=== PATIENT | female | born 2000 | race Asian ===

== ENCOUNTER 2023-06-24 15:22 | Inpatient (IN) ==
[2023-06-24] MEDS ORDERED: NS 0.9% 1000 ml BAG 1,000 ML IV ONE (15:55)
[2023-06-24] MEDS ORDERED: NS 0.9% 1000 ml BAG 0 ML IV SCH (16:30)
[2023-06-24 16:54] LABS: ABS Lymphocytes 0.5 10^3/uL (1.0-4.8); ABS Monocytes 0.1 10^3/uL (0.0-0.9); ABS Neutrophils 3.1 10^3/uL (1.5-7.6); Eosinophil % 0.1 %; Hematocrit 24.7 % (35-45); Hemoglobin 8.2 g/dL (11.5-14.3); Lymphocyte % 12.8 %; Mean Corpuscular Hemoglobin 27.9 pg (27-33); Mean Corpuscular Volume 84.5 fL (80-97); Mean Platelet Volume 8.2 fL (7.5-11.2); Platelet Count 110 10^3/uL (150-450); Red Blood Count 2.93 10^6/uL (3.63-4.92); Red Cell Distribution Width 14.5 % (12-17); White Blood Count 3.7 10^3/uL (3.8-11.8)
[2023-06-24 17:25] LABS: HCG Pregnancy < 0.60 mIU/mL
[2023-06-24 17:30] LABS: ALT 19 U/L (7-52); Albumin 2.2 g/dL (3.2-5.2); Albumin/Globulin Ratio 0.4 (1-3); Alkaline Phosphatase 41 U/L (35-149); Blood Urea Nitrogen 13 mg/dL (6-24); CO2 Carbon Dioxide 24 mmol/L (22-32); CRP High Sensitivity 13.52 mg/L (<2.00); Calcium 7.9 mg/dL (8.6-10.3); Chloride 109 mmol/L (101-111); Creatine Kinase 76 U/L (10-223); Glucose 72 mg/dL (70-100); Sodium 141 mmol/L (135-145); Total Bilirubin 0.3 mg/dL (0.2-1.0); Total Protein 7.2 g/dL (6.4-8.9)
[2023-06-24 17:58] LABS: Creatinine, Serum 0.39 mg/dL (0.51-0.95); eGFR CKD-EPI 143.4 (>60)
[2023-06-24 18:01] LABS: Alcohol, S < 13 mg/dL (<13); Anion Gap 8 mmol/L (2-16)
[2023-06-24] MEDS ORDERED: Iohexol 350 (CONTRAST) 500 ML MDV IV ONE (18:02)
[2023-06-24 18:16] LABS: TSH Ultra Thyroid Stim Horm 3.65 mcIU/mL (0.34-5.60)
[2023-06-24 19:20] LABS: Erythrocyte Sed Rate > 120 mm/Hr (0-19)
[2023-06-24 23:40] LABS: Immature Retic Fraction 0.36
[2023-06-25 01:05] LABS: Potassium Redraw 3.4 mmol/L (3.5-5.0)
[2023-06-25] MEDS: Ketorolac 10 mg TAB (NF) PO PRN (02:45)
[2023-06-25 03:50] LABS: Corrected Retic Count 0.7 % (0.5-2.2); Hematocrit for Retic CNT 24.7 % (35-45)
[2023-06-25] MEDS: cefTRIAXone 1 gm/50 mL D5W 1 GM/50 ML BAG IV SCH (04:18)
[2023-06-25] MEDS: Azithromycin 500 mg/250 ml NS 500 MG/250 ML BAG IVPB SCH (05:10)
[2023-06-25] MEDS: Venlafaxine XR 75 mg PO SCH (07:30)
[2023-06-25] MEDS ORDERED: Potassium Chlor 20 meq TAB.ER PO ONE (07:45)
[2023-06-25] MEDS ORDERED: Influenza vaccine *QUAD* *2023-24* 0.5 ML SYRINGE IM ONE (09:00)
[2023-06-25 10:54] LABS: High Sensitivity Troponin 1 Hr 9 pg/mL (<15)
[2023-06-25] MEDS: Ondansetron 4 mg VIAL 2 MG/ML 2 ml VIAL IV PRN (11:04)
[2023-06-25] MEDS: methylPREDNISolone SOD SUCC 1,000 MG in NS 0.9% 1000 ml BAG 1,000 ML IVPB SCH (11:37)
[2023-06-25] MEDS: Calcium/Vitamin D TAB 250/125 TAB PO SCH (22:02)
[2023-06-26] MEDS: cefTRIAXone 1 gm/50 mL D5W 1 GM/50 ML BAG IV SCH (04:00)
[2023-06-26] MEDS: Azithromycin 500 mg/250 ml NS 500 MG/250 ML BAG IVPB SCH (04:37)
[2023-06-26 08:25] LABS: Hematocrit 25.8 % (35-45); Hemoglobin 8.7 g/dL (11.5-14.3); Mean Corpuscular Hemoglobin 27.8 pg (27-33); Mean Corpuscular Hgb Conc 33.7 g/dL (31-36); Mean Corpuscular Volume 82.4 fL (80-97); Red Blood Count 3.14 10^6/uL (3.63-4.92); Red Cell Distribution Width 14.3 % (12-17); White Blood Count 4.9 10^3/uL (3.8-11.8)
[2023-06-26 08:50] LABS: Albumin 1.8 g/dL (3.2-5.2); Albumin/Globulin Ratio 0.4 (1-3); C Reactive Protein 12.13 mg/L (<8.01); Calcium 7.5 mg/dL (8.6-10.3); Creatinine, Serum 0.41 mg/dL (0.51-0.95); Globulin 4.1 g/dL (2-4); Potassium 3.8 mmol/L (3.5-5.0); Total Bilirubin 0.2 mg/dL (0.2-1.0); Total Protein 5.9 g/dL (6.4-8.9); eGFR CKD-EPI 141.7 (>60)
[2023-06-26 09:12] LABS: ABS Lymphocytes 0.7 10^3/uL (1.0-4.8); ABS Monocytes 0.3 10^3/uL (0.0-0.9); ABS Neutrophils 3.9 10^3/uL (1.5-7.6); ABS Nucleated RBC 0.01 10^3/ul; Lymphocyte % 14.6 %; Mean Platelet Volume 8.4 fL (7.5-11.2); Nucleated Red Blood Cells % 0.2 %/100WBC (0.0-0.8); Platelet Count 81 10^3/uL (150-450)
[2023-06-26] MEDS: methylPREDNISolone SOD SUCC 1,000 MG in NS 0.9% 1000 ml BAG 1,000 ML IVPB SCH (11:38)
[2023-06-26] MEDS: Calcium/Vitamin D TAB 250/125 TAB PO SCH ×2 (11:40→22:51)
[2023-06-26] MEDS: Venlafaxine XR 75 mg PO SCH (11:40)
[2023-06-26] MEDS: Cholecalciferol (VIT D3) 400 units TAB PO SCH (11:41)
[2023-06-26 14:37] LABS: Cytomegalovirus IgG Antibody Positive (Negative)
[2023-06-26 15:59] LABS: Urine Appearance Clear; Urine Bilirubin Negative (Negative); Urine Blood Negative (Negative); Urine Color Yellow; Urine Glucose Negative (Negative); Urine Ketones Negative (Negative); Urine Nitrite Negative (Negative); Urine Protein 1+(30 mg/dL) (Negative); Urine Specific Gravity 1.024 (1.002-1.030); Urine Urobilinogen Negative (Negative)
[2023-06-26 16:23] LABS: Urine Bacteria Absent (Absent); Urine Red Blood Cell Trace(0-2/hpf) (Absent); Urine Squamous Epithelial Cell Present (Absent); Urine White Blood Cell Trace(0-5/hpf) (Absent)
[2023-06-26] MEDS: Polyethylene Glycol 3350 17 GM PACKET PO PRN (18:44)
[2023-06-26] MEDS: Ketorolac 10 mg TAB (NF) PO PRN (18:45)
[2023-06-26] MEDS: Ondansetron 4 mg VIAL 2 MG/ML 2 ml VIAL IV PRN (18:46)
[2023-06-26 20:01] LABS: EBV Capsid Ag IgG Ab Positive (Negative); EBV Capsid Ag IgM Ab Negative (Negative); Epstein-Barr Nuclear Antigen Positive (Negative)
[2023-06-27] MEDS: Polyethylene Glycol 3350 17 GM PACKET PO PRN ×2 (02:08→19:46)
[2023-06-27] MEDS: cefTRIAXone 1 gm/50 mL D5W 1 GM/50 ML BAG IV SCH (04:02)
[2023-06-27] MEDS: Azithromycin 500 mg/250 ml NS 500 MG/250 ML BAG IVPB SCH (05:13)
[2023-06-27] MEDS: Ketorolac 10 mg TAB (NF) PO PRN ×2 (05:45→22:05)
[2023-06-27 07:21] LABS: ABS Lymphocytes 0.6 10^3/uL (1.0-4.8); ABS Monocytes 0.6 10^3/uL (0.0-0.9); ABS Neutrophils 4.7 10^3/uL (1.5-7.6); Hematocrit 24.5 % (35-45); Hemoglobin 8.2 g/dL (11.5-14.3); Mean Corpuscular Hemoglobin 27.8 pg (27-33); Mean Corpuscular Hgb Conc 33.3 g/dL (31-36); Mean Corpuscular Volume 83.4 fL (80-97); Mean Platelet Volume 9.7 fL (7.5-11.2); Platelet Count 93 10^3/uL (150-450); Red Blood Count 2.94 10^6/uL (3.63-4.92); Red Cell Distribution Width 14.4 % (12-17)
[2023-06-27 07:38] LABS: Calcium 7.3 mg/dL (8.6-10.3); Creatinine, Serum 0.47 mg/dL (0.51-0.95); Potassium 3.7 mmol/L (3.5-5.0); eGFR CKD-EPI 137.1 (>60)
[2023-06-27] MEDS ORDERED: Potassium Chlor 10 meq TAB PO ONE (07:47)
[2023-06-27 09:43] LABS: Albumin 1.8 g/dL (3.2-5.2); Albumin/Globulin Ratio 0.5 (1-3); Direct Bilirubin 0.1 mg/dL (0.03-0.18); Globulin 3.8 g/dL (2-4); Indirect Bilirubin 0.1 mg/dL (0.3-1.0); Total Bilirubin 0.2 mg/dL (0.2-1.0); Total Protein 5.6 g/dL (6.4-8.9)
[2023-06-27] MEDS: methylPREDNISolone SOD SUCC 1,000 MG in NS 0.9% 1000 ml BAG 1,000 ML IVPB SCH (09:49)
[2023-06-27] MEDS: Calcium/Vitamin D TAB 250/125 TAB PO SCH ×2 (11:52→21:36)
[2023-06-27] MEDS: Venlafaxine XR 75 mg PO SCH (11:52)
[2023-06-27] MEDS: Cholecalciferol (VIT D3) 400 units TAB PO SCH (11:53)
[2023-06-27] MEDS: Magnesium Hydroxide LIQ 30 ML UDC PO PRN ×2 (13:59→19:46)
[2023-06-27] MEDS ORDERED: Glycerin ADULT 2.4 gm SUPP PR PRN (16:09)
[2023-06-27 16:44] LABS: Anaplasma phagocytophilum Negative (Negative); B. miyamotoi PCR, B Negative (Negative); Babesia divergens/MO-1 Negative (Negative); Babesia ducani Negative (Negative); Ehrlichia chaffeensis Negative (Negative); Ehrlichia ewingii/canis Negative (Negative); Ehrlichia muris eauclairensis Negative (Negative)
[2023-06-27] MEDS: Ondansetron 4 mg VIAL 2 MG/ML 2 ml VIAL IV PRN (19:59)
[2023-06-28] MEDS: Ketorolac 10 mg TAB (NF) PO PRN (04:26)
[2023-06-28] MEDS: cefTRIAXone 1 gm/50 mL D5W 1 GM/50 ML BAG IV SCH (04:27)
[2023-06-28 06:38] LABS: ABS Lymphocytes 0.4 10^3/uL (1.0-4.8); ABS Neutrophils 11.7 10^3/uL (1.5-7.6); ABS Nucleated RBC 0.01 10^3/ul; Hematocrit 26.7 % (35-45); Hemoglobin 8.6 g/dL (11.5-14.3); Mean Corpuscular Hemoglobin 27.1 pg (27-33); Mean Corpuscular Hgb Conc 32.4 g/dL (31-36); Mean Corpuscular Volume 83.8 fL (80-97); Mean Platelet Volume 8.6 fL (7.5-11.2); Nucleated Red Blood Cells % 0.1 %/100WBC (0.0-0.8); Platelet Count 89 10^3/uL (150-450); Red Blood Count 3.19 10^6/uL (3.63-4.92); Red Cell Distribution Width 14.4 % (12-17); White Blood Count 13.1 10^3/uL (3.8-11.8)
[2023-06-28 06:53] LABS: Albumin/Globulin Ratio 0.5 (1-3); Calcium 7.4 mg/dL (8.6-10.3); Creatinine, Serum 0.61 mg/dL (0.51-0.95); Globulin 3.9 g/dL (2-4); Magnesium 2.1 mg/dL (1.9-2.7); Potassium 4.4 mmol/L (3.5-5.0); Total Bilirubin 0.2 mg/dL (0.2-1.0); Total Protein 5.9 g/dL (6.4-8.9); eGFR CKD-EPI 128.8 (>60)
[2023-06-28] MEDS: Ondansetron 4 mg VIAL 2 MG/ML 2 ml VIAL IV PRN (07:32)
[2023-06-28] MEDS: methylPREDNISolone SOD SUCC 1,000 MG in NS 0.9% 1000 ml BAG 1,000 ML IVPB SCH (08:04)
[2023-06-28] MEDS: Venlafaxine XR 75 mg PO SCH (09:00)
[2023-06-28] MEDS: Cholecalciferol (VIT D3) 400 units TAB PO SCH (09:01)
[2023-06-28] MEDS: Calcium/Vitamin D TAB 250/125 TAB PO SCH ×2 (09:01→20:36)
[2023-06-28] MEDS: Lactulose 30 ml UDC PO SCH (12:14)
[2023-06-28] MEDS ORDERED: Sodium Phosphate ADULT ENEMA 133 ML BTL PR ONE (14:54)
[2023-06-28 20:15] LABS: PCO2 Arterial 39 mmHg (35-45); PO2 Arterial 68 mmHg (80-100)
[2023-06-29] MEDS: cefTRIAXone 1 gm/50 mL D5W 1 GM/50 ML BAG IV SCH (04:04)
[2023-06-29 06:48] LABS: Hematocrit 25.8 % (35-45); Hemoglobin 8.3 g/dL (11.5-14.3); Mean Corpuscular Hemoglobin 27.1 pg (27-33); Mean Corpuscular Hgb Conc 32.3 g/dL (31-36); Mean Corpuscular Volume 83.9 fL (80-97); Mean Platelet Volume 9.2 fL (7.5-11.2); Platelet Count 52 10^3/uL (150-450); Red Blood Count 3.08 10^6/uL (3.63-4.92); Red Cell Distribution Width 14.9 % (12-17); White Blood Count 20.8 10^3/uL (3.8-11.8)
[2023-06-29 07:11] LABS: Calcium 6.4 mg/dL (8.6-10.3); Creatinine, Serum 0.54 mg/dL (0.51-0.95); Potassium 4.3 mmol/L (3.5-5.0); eGFR CKD-EPI 132.6 (>60)
[2023-06-29 07:42] LABS: ABS Lymphocytes 0.3 10^3/uL (1.0-4.8); ABS Monocytes 0.7 10^3/uL (0.0-0.9); ABS Neutrophils 19.8 10^3/uL (1.5-7.6); ABS Nucleated RBC 0.02 10^3/ul; Lymphocyte % 1.2 %; Nucleated Red Blood Cells % 0.1 %/100WBC (0.0-0.8)
[2023-06-29 09:39] LABS: % CD3 94 % (58-86); % CD4 41 % (32-64); % CD8 51 % (18-40); 4/8 H/S Ratio 0.8 (>=0.9); Absolute CD45 Count 0.36 thou/mcL (0.82-2.84); CD3 337 cells/mcL (550-2202); CD4 146 cells/mcL (365-1437); CD8 184 cells/mcL (199-846)
[2023-06-29 10:54] LABS: Magnesium 2.4 mg/dL (1.9-2.7); Phosphorus 2.2 mg/dL (2.5-5.0)
[2023-06-29] MEDS: Lactulose 30 ml UDC PO SCH ×3 (11:05→21:01)
[2023-06-29] MEDS: Calcium/Vitamin D TAB 250/125 TAB PO SCH ×2 (11:21→21:02)
[2023-06-29] MEDS: Cholecalciferol (VIT D3) 400 units TAB PO SCH (11:21)
[2023-06-29] MEDS: Venlafaxine XR 75 mg PO SCH (11:22)
[2023-06-29] MEDS: CALCIUM GLUCONATE 1GM/50ML NS 1 GM/50 ML BAG IV SCH ×2 (11:24→13:14)
[2023-06-29] MEDS ORDERED: Polyethylene Glycol 3350 17 GM PACKET PO PRN (14:11)
[2023-06-29] MEDS: methylPREDNISolone SOD SUCC 1,000 MG in NS 0.9% 1000 ml BAG 1,000 ML IVPB SCH (15:11)
[2023-06-29] MEDS: Polyethylene Glycol 3350 17 GM PACKET PO SCH (15:11)
[2023-06-29 15:15] LABS: CMV DNA DETECT/QT, P Undetected IU/mL (Undetected)
[2023-06-29] MEDS ORDERED: Furosemide 40 mg/4 ml IV VIAL IV ONE (17:38)
[2023-06-29] MEDS ORDERED: Sodium Phosphate IV 10 MMOL in NS 0.9% 250 ml 250 ML IV ONE (18:03)
[2023-06-29 20:14] LABS: Calcium (PTH Intact) 6.2 mg/dL (8.6-10.3)
[2023-06-30] MEDS: Venlafaxine XR 75 mg PO SCH (08:22)
[2023-06-30] MEDS: Calcium/Vitamin D TAB 250/125 TAB PO SCH (08:23)
[2023-06-30] MEDS: Polyethylene Glycol 3350 17 GM PACKET PO SCH (08:23)
[2023-06-30] MEDS: Cholecalciferol (VIT D3) 400 units TAB PO SCH (08:30)
[2023-06-30] MEDS: Lactulose 30 ml UDC PO SCH (08:32)
[2023-06-30 11:23] LABS: ALT 22 U/L (7-52); Albumin 1.9 g/dL (3.2-5.2); Albumin/Globulin Ratio 0.5 (1-3); Alkaline Phosphatase 48 U/L (35-149); Anion Gap 10 mmol/L (2-16); Blood Urea Nitrogen 18 mg/dL (6-24); CO2 Carbon Dioxide 21 mmol/L (22-32); Calcium 6.4 mg/dL (8.6-10.3); Chloride 106 mmol/L (101-111); Creatinine, Serum 0.49 mg/dL (0.51-0.95); Globulin 3.7 g/dL (2-4); Glucose 93 mg/dL (70-100); Sodium 137 mmol/L (135-145); Total Bilirubin 0.4 mg/dL (0.2-1.0); Total Protein 5.6 g/dL (6.4-8.9); eGFR CKD-EPI 135.7 (>60)
[2023-06-30 11:44] LABS: Hematocrit 24.6 % (35-45); Mean Corpuscular Hemoglobin 27.5 pg (27-33); Mean Corpuscular Hgb Conc 32.4 g/dL (31-36); Mean Corpuscular Volume 84.8 fL (80-97); Red Cell Distribution Width 14.9 % (12-17); White Blood Count 20.6 10^3/uL (3.8-11.8)
[2023-06-30 12:33] LABS: ABS Basophils 0.1 10^3/uL (0.0-0.1); ABS Lymphocytes 0.5 10^3/uL (1.0-4.8); ABS Monocytes 0.7 10^3/uL (0.0-0.9); ABS Neutrophils 18.2 10^3/uL (1.5-7.6); ABS Nucleated RBC 0.02 10^3/ul; Lymphocyte % 2.6 %; Mean Platelet Volume 11.5 fL (7.5-11.2); Nucleated Red Blood Cells % 0.1 %/100WBC (0.0-0.8); Platelet Count 89 10^3/uL (150-450)
[2023-06-30] MEDS: methylPREDNISolone SOD SUCC 1,000 MG in NS 0.9% 1000 ml BAG 1,000 ML IVPB SCH (13:06)
[2023-06-30] MEDS ORDERED: methylPREDNISolone SOD SUCC 1,000 MG in NS 0.9% 1000 ml BAG 1,000 ML IVPB ONE (13:10)
[2023-06-30] MEDS ORDERED: Furosemide 20 mg/2 ml IV VIAL IV ONE (13:44)
[2023-06-30] MEDS ORDERED: Immune Globulin IV Order (CPOE ENTRY PROTOCOL) IV SCH (14:00)
[2023-06-30] MEDS ORDERED: Enoxaparin 40 MG/0.4 ML SYR SUBCUT SCH (14:00)
[2023-06-30] MEDS ORDERED: Calcium Citrate 200 mg TAB PO SCH (14:00)
[2023-06-30] MEDS: CALCIUM GLUCONATE 1GM/50ML NS 1 GM/50 ML BAG IV SCH ×2 (14:17→15:25)
[2023-06-30] MEDS ORDERED: Immune Glob 10%-20GM GAMMAGLIQ 20 GM, Immune Glob 10%-5 GM GAMMAGLIQ 5 GM in Premix IV ... IV SCH (15:30)
[2023-06-30 18:34] VITALS: BP 124/78
[2023-07-02 13:05] LABS: Complement C3 24 mg/dL (75 - 175)
[2023-07-02 19:37] LABS: Phospholipid Ab IgG 83.1 GPL; Phospholipid Ab IgM, S > 150.0 MPL
[2023-07-03 20:22] LABS: Phospholipid (Cardiolipin) IgA < 9.4 APL
== END 2023-06-30 17:25 | disposition short-term general hospital (02) | DRG 545 ==
LOC: ED 15:22 → SUATTDRO 22:26 → EDHOLD 22:26 → SSU 06-25 00:05
PROVIDERS: ADMIT Internal Medicine; ATTEND Internal Medicine